=== PATIENT | female | born 1980 | race Caucasian/White ===

== ENCOUNTER 2020-06-25 09:20 | Day surgery (SDC) | payer MEDICAID, SELFPAY ==
[2020-06-21 14:01] LABS: BASOPHILS % (AUTO) 0.4 % (0.0-2.0); EOSINOPHILS # (AUTO) 0.2 K/uL (0-0.4); EOSINOPHILS % (AUTO) 1.7 % (0.0-4.0); HEMATOCRIT 38.4 % (36-48); HEMOGLOBIN 12.9 g/dL (12.0-16.0); MEAN CORPUSCULAR HEMOGLOBIN 30 pg (27-31); MEAN CORPUSCULAR HGB CONC 34 g/dL (33-37); MEAN CORPUSCULAR VOLUME 89.2 fL (80-94); MONOCYTES # (AUTO) 0.5 K/uL (0.8-1.0); MONOCYTES % (AUTO) 4.7 % (1.7-9.3); NEUTROPHILS % (AUTO) 72.2 % (42.2-75.2); PLATELET COUNT (AUTO) 340 K/uL (140-450); RED CELL DISTRIBUTION WIDTH 13.4 % (11.6-13.7); WHITE BLOOD COUNT (AUTO) 9.7 K/uL (4.8-10.8)
[2020-06-21 14:19] LABS: ALBUMIN 3.8 g/dL (3.4-5.0); ANION GAP 13.4 (8-16); CARBON DIOXIDE 26.1 mmol/L (21-32); CREATININE 0.9 mg/dL (0.6-1.3); POTASSIUM 3.5 mmol/L (3.5-5.1); TOTAL BILIRUBIN 0.7 mg/dL (0.0-1.0)
[~2020-06-25] VITALS: Ht 160 cm; Wt 89.8 kg
[2020-06-25] MEDS ORDERED: DESFLURANE 240 ML BTL INH ONE (12:28)
[2020-06-25] MEDS ORDERED: ONDANSETRON 4 MG/2 ML VIAL ONE (12:28)
[2020-06-25] MEDS ORDERED: KETOROLAC 30 MG/ML VIAL ONE (12:28)
[2020-06-25] MEDS ORDERED: fentaNYL citrate 0.05 MG/ML VIAL ONE (12:28)
[2020-06-25] MEDS ORDERED: PROPOFOL 200 MG/20 ML VIAL IV ONE (12:28)
[2020-06-25] MEDS ORDERED: DEXAMETHASONE 4 MG/ML VIAL ONE (12:28)
[2020-06-25] MEDS ORDERED: HYDROmorphone 1 MG/ML AMP IVP PRN (12:50)
[2020-06-25] MEDS ORDERED: ONDANSETRON 4 MG/2 ML VIAL IVP PRN (12:50)
[2020-06-25] MEDS ORDERED: METHYLERGONOVINE 0.2 MG/ML AMP ONE (12:52)
== END 2020-06-25 14:30 | disposition home or self-care (01) ==
LOC: MFCC 09:20 → MDS 09:20
PROVIDERS: ATTEND Obstetrics & Gynecology
DX: O02.1 Missed abortion (principal); E03.9 Hypothyroidism, unspecified; Z79.899 Other long term (current) drug therapy; Z20.828 Contact with and (suspected) exposure to other viral communicable diseases
CPT/HCPCS: 36415; 59821; 80053; 81025; 85025; 86886; 86900; 86901; 88305; J1100; J1885; J2210; J2405; J2704; J3010; J7030; U0003